=== PATIENT | female | born 2000 | race Caucasian/White ===

== ENCOUNTER 2024-07-10 06:29 | Emergency (ER) | payer MEDICAID ==
[~2024-07-10] VITALS: Ht 167.6 cm; Wt 54.4 kg
[2024-07-10 06:41] VITALS: BP_SYST 117; PULSE 96; RESP 17; TEMP 96.9; O2SAT 96
[2024-07-10] MEDS: DIPHENHYDRAMINE INJ 50 MG/ML VIAL IVP ONE (07:09)
[2024-07-10 08:58] LABS: BASOPHILS % (AUTO) 0.1 % (0.0-2.0); EOSINOPHILS # (AUTO) 0.1 K/uL (0.0-0.4); EOSINOPHILS % (AUTO) 3.3 % (0.0-4.0); HEMATOCRIT 43.5 % (36-48); HEMOGLOBIN 14.5 g/dL (12.0-16.0); LYMPHOCYTES # (AUTO) 0.4 K/uL (1.0-5.5); LYMPHOCYTES % (AUTO) 13.2 % (20.5-51.5); MEAN CORPUSCULAR HEMOGLOBIN 30 pg (27-31); MEAN CORPUSCULAR HGB CONC 33 % (32-36); MEAN CORPUSCULAR VOLUME 89 fL (79.0-98.0); MONOCYTES # (AUTO) 0.2 K/uL (0.0-1.0); MONOCYTES % (AUTO) 6.8 % (1.7-9.3); NEUTROPHILS # (AUTO) 2.6 K/uL (1.8-7.7); NEUTROPHILS % (AUTO) 76.6 % (40.0-70.0); PLATELET COUNT (AUTO) 169 K/uL (130-430); RED BLOOD CELL COUNT(AUTO) 4.88 MIL/uL (4.2-6.2); RED CELL DISTRIBUTION WIDTH 13.4 % (9.0-15.0); WHITE BLOOD COUNT (AUTO) 3.4 K/uL (4.8-10.8)
[2024-07-10 09:09] LABS: CALCIUM 9.1 mg/dL (8.4-11.0); POTASSIUM 3.9 mmol/L (3.5-5.1)
[2024-07-10 09:10] LABS: CREATININE 1.03 mg/dL (0.55-1.30)
[2024-07-10] MEDS ORDERED: FAMO-132 PO (09:28)
[2024-07-10] MEDS ORDERED: PRED20TA PO (09:29)
[2024-07-10] MEDS: METHYLPREDNISOLONE SOD SUCC 40 MG/ML VIAL IVP ONE (09:54)
[2024-07-10] MEDS: FAMOTIDINE PF 20 MG/2 ML VIAL IVP ONE (09:54)
[2024-07-10 09:55] VITALS: BP_SYST 121; PULSE 88; RESP 18; TEMP 98.5; O2SAT 99
== END 2024-07-10 09:50 | disposition home or self-care (01) ==
LOC: SED 06:29
DX: L27.0 Generalized skin eruption due to drugs and medicaments taken internally (principal); T36.8X5A Adverse effect of other systemic antibiotics, initial encounter; Z79.899 Other long term (current) drug therapy; Z79.2 Long term (current) use of antibiotics; Y92.89 Other specified places as the place of occurrence of the external cause
CPT/HCPCS: 80048; 85025; 86403; 36415; 99284; 96374; 96375; 87081; J1200; J3490; J1030